=== PATIENT | female | born 1985 | race Caucasian/White ===

== ENCOUNTER 2020-01-22 02:07 | Emergency (ER) | payer SELFPAY ==
[2020-01-22 02:13] VITALS: BP 132/76; PULSE 84; RESP 17; TEMP 36.5; O2SAT 100
[2020-01-22 02:20] VITALS: BP 104/72; PULSE 81; RESP 20; TEMP 36.8; O2SAT 100
--- NOTE | 2020-01-22 02:22 | ED.NECK ---
HPI - Neck Pain/Injury General Chief Complaint: Neck Pain/Injury Stated Complaint: neck and shoulder pain Time Seen by Provider: 01/22/20 02:22 History of Present Illness HPI Narrative: Pt is a 34 y/o female who presents to the ED with c/o neck pain that radiates to her left shoulder. Pt sx began 2 days ago (01/20/20) after lifting 50 pound pack of seed. Pt denies numbness and tingling. complaint: neck pain Onset (ago): day(s) (2) Place: work Radiation: left shoulder Duration: constant Relieving factors: none Context: lifting Associated symptoms: none Related Data Allergies Allergy/AdvReac Type Severity Reaction Status Date / Time aspirin Allergy Other Verified 01/22/20 02:41 Penicillins Allergy Rash Verified 01/22/20 02:41 Sulfa (Sulfonamide Allergy Rash Verified 01/22/20 02:41 Antibiotics) Review of Systems Review of Systems: All systems reviewed & are unremarkable except as noted in HPI and below Musculoskeletal: Musculoskeletal: Reports neck pain (that radiates to her left shoulder) Neurologic: Denies numbness and Denies tingling PMFSH Past Medical History Medical History (Updated 01/22/20 @ 02:48 by Igor Walsh MD) Patient denies significant medical history Surgical History Surgical History (Updated 01/22/20 @ 02:40 by Suzan Torres) Surgical history unknown Social History Social History (Updated 01/22/20 @ 02:40 by Suzan Torres) Smoking status: Unknown if ever smoked Gender identity (if verbalized by the patient): Female Exam Const: General: no acute distress Orientation/consciousness: patient oriented x3 HENMT: Head: normal to inspection Eyes: Pupils: Equal, round and reactive pupils present Neck: Neck: normal visual inspection Other: Pain and tenderness on the left trapezius area Chest: Chest palpation & inspection: normal inspection of the chest Resp: Effort & Inspection: normal respiratory effort Cardio: Rate: regular rate Back/Spine/Pelvis: Back: no CVA tenderness Skin: General skin exam: normal color Course Vital Signs Vital signs: Vital Signs Temperature 36.5 C 01/22/20 02:13 Pulse Rate 84 01/22/20 02:13 Respiratory Rate 17 01/22/20 02:13 Blood Pressure 132/76 01/22/20 02:13 Pulse Oximetry 100 01/22/20 02:13 Temperature 36.8 C 01/22/20 02:20 Pulse Rate 81 01/22/20 02:20 Respiratory Rate 20 01/22/20 02:20 Blood Pressure 104/72 01/22/20 02:20 Pulse Oximetry 100 01/22/20 02:20 Discharge Plan Discharge Clinical Impression: Strain of neck muscle Qualifiers: Encounter type: initial encounter Qualified Code(s): S16.1XXA - Strain of muscle, fascia and tendon at neck level, initial encounter Patient Disposition: Home, Self-Care Condition: Stable Instructions: Spasmodic Torticollis (ED) Prescriptions: New hydrocodone-acetaminophen [[place]] 5-325 mg tablet 1 tablet PO Q6H PRN (Reason: pain) Qty: 14 RF: 0 cyclobenzaprine 5 mg tablet 5 mg PO TID PRN (Reason: muscle spasm) Qty: 20 RF: 0 Follow-up/Referrals: UNKNOWN,DOCTOR [Primary Care Provider] - Ruben Ferguson MD [Physician] - Time of Disposition: 02:49
== END 2020-01-22 03:00 | disposition home or self-care (01) ==
PROVIDERS: Emergency Provider Family Medicine
DX: S16.1XXA Strain of muscle, fascia and tendon at neck level, initial encounter (principal); X50.0XXA Overexertion from strenuous movement or load, initial encounter
CPT/HCPCS: 99283; A9270